=== PATIENT | male | born 1945 | race Caucasian/White ===

== ENCOUNTER → 2018-01-21 | Outpatient (CLI) | payer OTHER ==
[~2018-01-21] MED LIST: ISOVUE-300 61% 50ML VIAL (Q9967) As Ordered; MIDAZOLAM INJ 2 MG/2 ML VIAL (J2250) As Ordered; fentaNYL 100 MCG/2 ML INJECTION (J3010) As Ordered
== END | disposition home or self-care (01) ==
LOC: M IRPRO 06:17
DX: I65.23 Occlusion and stenosis of bilateral carotid arteries (principal); I12.9 Hypertensive chronic kidney disease with stage 1 through stage 4 chronic kidney disease, or unspecified chronic kidney disease; N18.9 Chronic kidney disease, unspecified; I25.10 Atherosclerotic heart disease of native coronary artery without angina pectoris; Q60.0 Renal agenesis, unilateral
CPT/HCPCS: 36222

== ENCOUNTER 2018-04-10 09:31 | Inpatient (IN) | payer OTHER ==
[2018-04-10] MEDS ORDERED: LR 1,000 ML IV (09:45)
[2018-04-10] MEDS ORDERED: MIDAZOLAM INJ 2 MG/2 ML VIAL (J2250) As Ordered (12:11)
[2018-04-10] MEDS ORDERED: fentaNYL 100 MCG/2 ML INJECTION (J3010) As Ordered (12:11)
[2018-04-10] MEDS ORDERED: PROPOFOL 200 MG/20 ML VIAL As Ordered (12:13)
[2018-04-10] MEDS ORDERED: LIDOCAINE 2% INJ 100 MG/5 ML SDV (FOR ANES.) As Ordered (12:14)
[2018-04-10] MEDS ORDERED: ROCURONIUM BROMIDE 50 MG/5 ML VIAL As Ordered ×2 (12:14→13:58)
[2018-04-10] MEDS ORDERED: dexameTHASONE 4 MG/ML 1ML VIAL (J1100) As Ordered (12:15)
[2018-04-10] MEDS ORDERED: METOCLOPRAMIDE INJ 10MG/2ML VIAL (J2765) As Ordered (12:15)
[2018-04-10] MEDS ORDERED: VASOPRESSIN INJ 20 UNITS/ML VIAL As Ordered (13:00)
[2018-04-10] MEDS ORDERED: ePHEDrine SULFATE 25 MG/5 ML(5MG/ML) SYRINGE As Ordered ×2 (13:52→13:59)
[2018-04-10] MEDS ORDERED: HEPARIN SOD (PORCINE) 5000 UNITS/ML VIAL As Ordered ×2 (14:11→14:21)
[2018-04-10] MEDS: HEPARIN SOD (PORCINE) 5000 UNITS/ML VIAL As Ordered (14:23)
[2018-04-10] MEDS ORDERED: ATROPINE SULF 0.4 MG/ML 1ML VIAL (J0461) As Ordered (14:27)
[2018-04-10] MEDS ORDERED: PROTAMINE SULF INJ 50 MG/5 ML VIAL (J2720) As Ordered (15:04)
[2018-04-10] MEDS: THROMBIN SOLN 20,000 UNITS KIT As Ordered (15:04)
[2018-04-10] MEDS: BUPIVACAINE HCL 0.5% 30 ML VIAL As Ordered (15:24)
[2018-04-10] MEDS: LIDOCAINE 1% SDV INJ 30 ML VIAL As Ordered (15:24)
[2018-04-10] MEDS ORDERED: ONDANSETRON 4MG/2ML VIAL (J2405) IV ×2 (15:30→16:30)
[2018-04-10] MEDS ORDERED: MOM 30ML SUSPENSION UDC PO (15:30)
[2018-04-10] MEDS ORDERED: ACETAMINOPHEN TAB 650MG DOSE (2X325MG) PO (15:30)
[2018-04-10] MEDS ORDERED: MORPHINE 4 MG/ML 1ML VIAL/SYRINGE (J2270) IV (15:30)
[2018-04-10] MEDS ORDERED: NORCO, ANEXSIA 5/325MG TABLET (HYDROcodone/ACETAMINOPHEN) PO ×2 (15:30→16:30)
[2018-04-10] MEDS ORDERED: BISACODYL 10 MG SUPP PR (15:30)
[2018-04-10] MEDS ORDERED: SUGAMMADEX SODIUM 500 MG/5 ML VIAL (BRIDION) As Ordered (15:32)
[2018-04-10] MEDS: LR 1,000 ML IV (16:30)
[2018-04-10] MEDS ORDERED: fentaNYL 100 MCG/2 ML INJECTION (J3010) IV (16:30)
[2018-04-10] MEDS ORDERED: SLF 3 ML SYR IV (17:30)
[2018-04-10] MEDS: HEPARIN SOD (PORCINE) 5000 UNITS/ML VIAL SC (21:43)
[2018-04-10] MEDS: SENOKOT S TAB PO (21:43)
[2018-04-10] MEDS: OMEPRAZOLE 20 MG CAP PO (21:43)
[2018-04-10] MEDS: DOCUSATE SODIUM 100 MG CAP PO (21:43)
[2018-04-10] MEDS: SLF 3 ML SYR IV (21:44)
[2018-04-11] MEDS ORDERED: SLF 3 ML SYR IV (05:45)
[2018-04-11] MEDS: SLF 3 ML SYR IV (05:51)
[2018-04-11] MEDS: HEPARIN SOD (PORCINE) 5000 UNITS/ML VIAL SC (05:51)
[2018-04-11] MEDS: CYANOCOBALAMIN 500 MCG TAB PO (08:16)
[2018-04-11] MEDS: OMEPRAZOLE 20 MG CAP PO (08:18)
[2018-04-11] MEDS: ROSUVASTATIN 10 MG TAB (CRESTOR) PO (08:18)
[2018-04-11] MEDS: TAMSULOSIN 0.4 MG CAP PO (08:18)
[2018-04-11] MEDS: LISINOPRIL 40 MG TAB PO (08:18)
[2018-04-11] MEDS: SENOKOT S TAB PO (08:18)
[2018-04-11] MEDS: ASPIRIN 81 MG ENTERIC TAB PO (08:18)
[2018-04-11] MEDS: CLOPIDOGREL 75 MG TAB PO (08:18)
[2018-04-11] MEDS: DOCUSATE SODIUM 100 MG CAP PO (08:18)
[2018-04-11] MEDS: METOPROLOL SUCC *XL* 25MG TAB (TopROL *XL*) PO (08:22)
[2018-04-11] MEDS: INFLUENZA VIRUS VACCINE HIGH DOSE 0.5 ML SYRINGE (90662) IM (09:48)
[2018-04-11] MEDS: PREVNAR 13 VACCINE SYRINGE (CPT CODE:90670) IM (09:49)
== END 2018-04-11 14:35 | disposition home or self-care (01) | DRG 39 ==
LOC: M OR 09:31 → M PCU 17:00
PROC: 03HJ3DZ Insertion of Intraluminal Device into Left Common Carotid Artery, Percutaneous Approach (ICD-10-PCS; principal; 2018-04-10 11:15)
PROC: 03HH3DZ Insertion of Intraluminal Device into Right Common Carotid Artery, Percutaneous Approach (ICD-10-PCS; 2018-04-10 11:15)
PROC: 03CJ0ZZ Extirpation of Matter from Left Common Carotid Artery, Open Approach (ICD-10-PCS; 2018-04-10 11:15)
PROC: 03UL0JZ Supplement Left Internal Carotid Artery with Synthetic Substitute, Open Approach (ICD-10-PCS; 2018-04-10 11:15)
DX: I65.22 Occlusion and stenosis of left carotid artery (principal); Z79.82 Long term (current) use of aspirin; Z79.899 Other long term (current) drug therapy; I48.91 Unspecified atrial fibrillation; J44.9 Chronic obstructive pulmonary disease, unspecified; I25.2 Old myocardial infarction; K21.9 Gastro-esophageal reflux disease without esophagitis; Z95.1 Presence of aortocoronary bypass graft; E78.5 Hyperlipidemia, unspecified; I10 Essential (primary) hypertension; I25.10 Atherosclerotic heart disease of native coronary artery without angina pectoris; N40.0 Benign prostatic hyperplasia without lower urinary tract symptoms; F17.200 Nicotine dependence, unspecified, uncomplicated; I73.9 Peripheral vascular disease, unspecified